=== PATIENT | female | born 1985 | race African-American/Black ===

== ENCOUNTER 2016-07-29 08:46 | Emergency (ER) | payer MEDICAID ==
[~2016-07-29] VITALS: Ht 157.5 cm; Wt 67.8 kg
[~2016-07-29 08:46] MED LIST: DICL100G37 TOP; FLUC150T17 PO; HYDR-906 PO; IBUP-1542 PO; ORPH100T PO
[2016-07-29 08:53] VITALS: Ht 157.5 cm; Wt 67.8 kg
[2016-07-29] MEDS ORDERED: DOXY100T20 PO (11:54)
[2016-07-29] MEDS ORDERED: METR70GE15 VAG (12:00)
--- NOTE | 2016-07-29 12:15 | ERD ---
ER Documentation Chief Complaint Date/Time DATE: 07/29/16 TIME: 12:05 Chief Complaint wants std's check HPI 30-year-old female recently diagnosed with gonorrhea earlier this month comes emergency room continuing green vaginal discharge. Patient states that she has been given Rocephin 250 mg as well as Zithromax 1 g by mouth. She then was given an additional 4 pills of Zithromax, and Rocephin 1 g IM in a different emergency department. Her primary care doctor was out of town and he stated that she should go to the emergency department for further evaluation. She has has some pelvic discomfort, exterior vulval vaginal discomfort. She denies any fevers or chills. No nausea or vomiting. She reports that the last time she had intercourse was May 28, 2016, she reports vaginal as well as oral sex. Patient denies any further sexual activity thereafter. ROS All systems reviewed and are negative except as per history of present illness. Medications Home Meds Active Scripts Metronidazole* (Metrogel* Vaginal) 0.75% -70 Gram Gel.w.appl, 1 APPFUL VAG BID for 7 Days, TUB Prov:JULIO NGUYEN PA-C 07/29/16 Doxycycline Hyclate* (Doxycycline Hyclate*) 100 Mg Tablet.dr, 100 MG PO BID for 7 Days, TAB Prov:JULIO NGUYEN PA-C 07/29/16 Diclofenac Sodium* (Voltaren* Gel) 1% -100 Gm Gel, 2 GM TOP QID, #1 TUB Prov:CHUCKY WHITE 11/21/15 Orphenadrine Citrate (Norflex) 100 Mg Tablet.sa, 100 MG PO BID for 3 Days, TAB.SA Prov:CHUCKY WHITE 11/21/15 Ibuprofen* (Motrin*) 600 Mg Tab, 600 MG PO Q6, #30 TAB Prov:CHUCKY WHITE 11/21/15 Hydrocodone/Acetaminophen ([place] 5-325 Tablet) 1 Each Tablet, 1 EACH PO Q4, #10 TAB Prov:CHUCKY WHITE 11/21/15 Fluconazole* (Diflucan*) 150 Mg Tablet, 150 MG PO ONCE, #2 TAB 0 Refills take 1 tablet po then another 72 hours later Prov:CLARITA SMITH PA-C 06/06/15 Reported Medications [None] No Conflict Check 09/30/10 Allergies Allergies: Coded Allergies: Meperidine (Verified Allergy, Mild, HIVES, 03/16/11) PMhx/Soc History of Surgery: Yes (C/SECTION X1, breast augmentation, ) Anesthesia Reaction: No Hx Neurological Disorder: No Hx Respiratory Disorders: Yes (asthma) Hx Cardiac Disorders: No Hx Psychiatric Problems: No Hx Miscellaneous Medical Probl: Yes (Gonorrhea) Hx Alcohol Use: No Hx Substance Use: No Hx Tobacco Use: Yes (1pack/week) Smoking Status: Current every day smoker Physical Exam Vitals Vital Signs Date Time Temp Pulse Resp B/P Pulse Ox O2 Delivery O2 Flow Rate FiO2 07/29/16 08:53 98.1 82 20 104/60 99 Physical Exam General: Well-developed, well-nourished. The patient appears in no acute distress. HEENT: Head is normocephalic, atraumatic. No scleral icterus. Neck: Supple. Nontender. Lungs: Clear to auscultation. Normal air movement. Heart: Regular rate and rhythm. S1 and S2 are normal. No murmurs, gallops, or rubs. Abdomen: Nondistended. Soft nontender. : No rash to the external genitalia, cervix is normal, there is white thick discharge in the vaginal vault. Extremities: No clubbing or cyanosis. Moving extremities x 4. No weakness. Neurologic: Alert and oriented 3. No focal deficits. Normal speech and gait. Skin: Normal turgor. No rash or lesions. Procedures/MDM 30-year-old female comes to the emergency room with symptoms of cervicitis. Patient reports genital cultures that were positive for gonorrhea. Given her history of repetitive treatments, positive gonorrhea culture, general culture was obtained as well as a wet mount. Patient will be given doxycycline at this time, as well as MetroGel. She does not show any signs of PID, sepsis, ovarian torsion, tubo-ovarian abscess. Departure Diagnosis: Primary Impression: Cervicitis Condition: Good Patient Instructions: Cervicitis (Std), Treated Additional Instructions: Call your primary care doctor TOMORROW for an appointment during the next 1-2 days.See the doctor sooner or return here if your condition worsens before your appointment time. JULIO NGUYEN PA-C Jul 29, 2016 12:15
== END 2016-07-29 12:18 | disposition home or self-care (01) ==
LOC: FTE 08:46
DX: N72 Inflammatory disease of cervix uteri (principal); J45.909 Unspecified asthma, uncomplicated; F17.210 Nicotine dependence, cigarettes, uncomplicated
CPT/HCPCS: 87081; 87210; 87591; 99284